=== PATIENT | female | born 1995 | race Caucasian/White ===

== ENCOUNTER → 2017-10-17 11:35 | Outpatient (CLI) | payer OTHER, SELFPAY ==
[2017-10-17 16:51] LABS: Urine N gonorrhoeae NOT DETECTED
[2017-10-17 16:57] LABS: Urine Chlamydia NOT DETECTED
== END ==
PROVIDERS: Family Provider Family Medicine; PCP Family Medicine; Visit Provider Family Medicine
DX: Z30.9 Encounter for contraceptive management, unspecified (principal)
CPT/HCPCS: 87491; 87591

== ENCOUNTER 2018-03-18 05:11 | Emergency (ER) | payer OTHER, SELFPAY ==
[2018-03-18 05:28] VITALS: BP 133/72; PULSE 96; RESP 20; O2SAT 100; BMI 30.9
[2018-03-18 05:32] VITALS: BP 121/84; BP 126/80; BP 133/72; PULSE 100; PULSE 102; PULSE 96
--- NOTE | 2018-03-18 05:46 | ED.FEMALEGU ---
HPI - Female Genitourinary General Chief complaint: Vaginal Bleeding Stated complaint: heavy period/huge clots/passed out when got up Time Seen by Provider: 03/18/18 05:38 Source: patient Mode of arrival: ambulatory Limitations: no limitations History of Present Illness HPI Narrative: The patient is a 22-year-old female who presents with heavy vaginal bleeding. She states she started control in September she has a history of heavy periods. This. Started out fairly light however she is on day 9. It has gotten progressively heavier. She said all day yesterday she was going through a pad an hour. This morning she passed out after using the restroom. Her mom heard her fall. It was very brief she has no head injury from it. She had mild abdominal cramping. No severe pain. She also passing a fist-sized clots. MD Complaint: vaginal bleeding Related Data Previous Rx's Medication Instructions Recorded albuterol sulfate HFA 90 2 puff INHALATION Q4HP PRN #1 inh 10/17/17 mcg/actuation aerosol inhaler norethindrone 1 mg-ethinyl 1 tab PO DAILY #1 packet 10/17/17 estradiol 10 mcg (24)-iron 10 mcg(2) tablet Allergies Allergy/AdvReac Type Severity Reaction Status Date / Time Penicillins Allergy Severe HIVES Unverified 10/17/17 11:07 Review of Systems Review of Systems All systems reviewed & are unremarkable except as noted in HPI and below Constitutional Denies chills, Denies fever(s), Denies lethargy and Reports weakness Eyes Denies change in vision, Denies eye discharge, Denies irritation and Denies loss of vision Cardiovascular Denies chest pain, Reports syncope, Denies irregular heart rhythm, Reports lightheadedness, Denies palpitations, Denies dyspnea, Denies dyspnea on exertion and Denies orthopnea Respiratory Denies cough, Denies dyspnea, Denies dyspnea on exertion and Denies wheezing Gastrointestinal Gastrointestinal: Denies abdominal pain, Denies change in bowel habits, Denies diarrhea, Denies nausea and Denies vomiting Genitourinary Reports as per HPI Musculoskeletal Denies back pain, Denies muscle weakness, Denies numbness and Denies tingling Integumentary/Breasts Denies pruritus, Denies erythema, Denies rash and Denies wounds Neurologic Reports syncope, Denies loss of vision, Denies numbness, Denies tingling and Reports weakness Endocrine Denies palpitations Allergic/Immunologic Denies wheezing [facility] Medical History Class 1 obesity (02/09/16) Asthma (Chronic ~2012) Social History marital status: unmarried,single household members: other pets and animals: Yes education level: college occupational status: student abraham/nondenominational: Yazdanism travel history: other leisure activities: reading seatbelt use: always Smoking Status: Current some day smoker alcohol intake: current substance use type: does not use during the past year weight has: remained stable well-balanced diet: daily or most days daily servings fruits/ve-4 eating out: rarely or never Type(s) of exercise: other frequency: 3-4 times per week duration: 45-60 minutes/day Exam Initial Vital Signs Initial Vital Signs: Vital Signs Pulse Rate 96 H 03/18/18 05:28 Respiratory Rate 20 03/18/18 05:28 Blood Pressure 133/72 03/18/18 05:28 Pulse Oximetry 100 03/18/18 05:28 GENERAL: Well-appearing, well-nourished and in no acute distress. HEENT: Head atraumatic,EOMI, pupils reactive, face symmetric, CARDIOVASCULAR: Regular rate and rhythm without murmurs, rubs or gallops. RESPIRATORY: Breath sounds equal bilaterally, no wheezes rales or rhonchi. ABDOMEN: Soft, nontender. Normoactive bowel sounds all 4 quadrants. No guarding or rebound. PELVIC: External genitalia is normal, mild to moderate mild vaginal bleeding, no large blood clots no vaginal discharge, no odor, cervical os is open, no adnexal tenderness : No CVA tenderness EXTREMITIES: Normal range of motion, no clubbing or edema. Neurovascularly intact NEUROLOGICAL: Alert and oriented x4.Normal gait and speech. SKIN: Warm, dry, no laceration, no petechiae, no rashes or lesions. Course Orders Ordered: Discontinued Medications Sodium Chloride (Normal Saline 0.9%) 1,000 mls @ 1,000 mls/hr IV BOLUS ONE Stop: 03/18/18 06:44 Last Infusion: 03/18/18 07:16 Dose: 0 mls/hr Admin: 03/18/18 06:05 Dose: 1,000 mls/hr Medroxyprogesterone Acetate (Medroxyprogesterone) 10 mg PO NOW ONE Stop: 03/18/18 06:37 Last Admin: 03/18/18 06:46 Dose: 10 mg Vital Signs - 8 hr 03/18/18 05:28 03/18/18 05:32 Pulse Rate 96 H Pulse Rate [Orthostatic Lying] 96 H Pulse Rate [Orthostatic Sitting] 100 H Pulse Rate [Orthostatic Standing] 102 H Respiratory Rate 20 Blood Pressure 133/72 Blood Pressure [Orthostatic Lying] 133/72 Blood Pressure [Orthostatic Sitting] 126/80 Blood Pressure [Orthostatic Standing] 121/84 Pulse Oximetry 100 MDM - Female Genitourinary Lab Data Attestation: I reviewed the patient's lab results. Result diagrams: 03/18/18 06:00 03/18/18 06:00 Lab Results 03/18/18 03/18/18 03/18/18 Range/Units 06:00 06:00 07:51 WBC 8.8 (4.5-11.0) X10^3/uL RBC 3.80 L (4.0-5.2) X10^6/uL Hgb 11.3 L (12.0-16.0) g/dL Hct 32.3 L (36-46) % MCV 84.8 (80-100) fL MCH 29.6 (26-34) PG MCHC 34.9 (30-36) % RDW 13.7 (11.6-14.8) % Plt Count 277 (150-400) X10^3/uL Neut % (Auto) 66.0 (50-75) % Lymph % (Auto) 26.0 (25-40) % [place] % (Auto) 5.4 (3-14) % Eos % (Auto) 2.1 (2-4) % Baso % (Auto) 0.5 (0-2) % Neut # (Auto) 5800 (2975-4983) /uL Sodium 137 (137-145) mmol/L Potassium 3.6 (3.4-5.1) mmol/L Chloride 103 (98-107) mmol/L Carbon Dioxide 22 (22-32) mmol/L BUN 15 (7-17) mg/dL Creatinine 0.60 (0.52-1.04) mg/dL Estimated GFR > 60.0 (>60) mL/min BUN/Creatinine Ratio 25.0 H (6-22) Glucose 134 H (70-100) mg/dL Calcium 8.4 (8.4-10.2) mg/dL Urine RBC 30-100/hpf H (0-5/HPF) Urine WBC 1-5/hpf (0-5/HPF) Ur Squamous Epith Cells 1-5 /hpf Amorphous Sediment 1+ Urine Bacteria Many (>30) H (None) Ur Culture Indicated? Specimen cultured Micro UA Comment Not Reportable Point of Care Testing Test Results Negative Urine Dip Bedside Urine Glucose Negative Bedside Urine Bilirubin - Negative Bedside Urine Ketone - Negative Urine Specific [place] 1.015 Bedside Urine Occult Blood +++ Bedside Urine pH 6.0 Bedside Urine Protein +/- 15 Bedside Urine Urobilinogen - Negative Bedside Urine Nitrite - Negative Bedside Urine Leukocytes + 70 Esterase Imaging Data US pelvic: Radiologist's impression: ROCEDURE: US PELVIC COMPLETE INDICATIONS: vaginal bleeding TECHNIQUE: Real-time scanning was performed of the pelvic organs, with image documentation. Additional endovaginal scanning was necessary due to incomplete visualization of the adnexal and endometrial structures by transabdominal scanning. COMPARISON: None. FINDINGS: Transabdominal scanning: Limited scanning through the kidneys shows no hydronephrosis. No pathologic free abdominal or pelvic fluid. Endovaginal scanning: Uterus: Uterus is normal in size at 8.1 x 4.2 x 5.9 cm. The endometrium measures 9.3 mm in combined thickness. Large intramural/subserosal fibroid is noted in the fundus of uterus measures 3.2 x 3.5 x 2.4 cm in size. No gross endometrial mass or fluid. Physiologic amount of free fluid is seen in posterior cul-de-sac. Ovaries: Right ovary measures 3 x 1.7 x 2.4 cm in size. Left ovary measures 3.5 x 3 x 3.4 cm in size. 3 x 2.5 x 3.1 cm simple cyst is noted in left ovary. No gross sonogram and lesion. Normal blood flow is seen in bilateral ovaries on color Doppler images. IMPRESSION: 1. Large uterine fibroid. No gross endometrial mass or fluid. Physiologic amount of free fluid in the posterior cul-de-sac. 2. Simple cyst in left ovary. No solid upright ovarian lesion. No evidence of ovarian torsion. Dictated by: Ken Mak M.D. on 03/18/2018 at 8:27 MDM Narrative Medical decision making narrative: Discussed warning signs of when to return to ED. Vaginal bleeding is likely contributed to large uterine fibroid. Discharge Plan Departure Patient Disposition: Home Clinical Impression: Menometrorrhagia Discharge Date/Time: 03/18/18 07:55 Interventions: ED Discharge Assessment Last Done: 03/18/18 07:55 Instructions: Uterine Fibroids, DI for Vaginal Bleeding Activity Restrictions/Additional Instructions: *You have been diagnosed with heavy prolonged uterine bleeding, uterine fibroids -have heavy menstrual bleeding, restarting your control, not the sugar pills should help to stop this bleeding. You were also given an extra dose is of pro vera which should also help to stop bleed. Fibroids also cause increase bleeding. *Continue to take medications as directed Resume your control today- not the sugar pills *Follow up with your primary care provider in 2-3 days-Call Dr. Dallas's office today to schedule a follow up appointment *Return to ER if you should have dizziness, lightheadedness, or any new, worsening or concerning symptoms Prescriptions: No Action albuterol sulfate [Ventolin HFA] 90 mcg/actuation HFA aerosol inhaler 2 puff INHALATION Q4HP PRN (Reason: shortness of breath or wheezing) Qty: 1 RF: 2 norethindrone-e.estradiol-iron [Lo Loestrin Fe] 1 mg-10 mcg (24)/10 mcg (2) tablet 1 tab PO DAILY Qty: 1 RF: 11 Referrals: Yuliana Dallas DO [Primary Care Provider] -
[2018-03-18] MEDS: SODIUM CHLORIDE 0.9% 1,000 ML 1000 ML IV (06:05)
[2018-03-18 06:16] LABS: Add Manual Diff / Slide Review NO; Basophils Percent Auto 0.5 % (0-2); Eosinophils Percent Auto 2.1 % (2-4); Hematocrit 32.3 % (36-46); Hemoglobin 11.3 g/dL (12.0-16.0); Mean Corpuscular HGB Conc 34.9 % (30-36); Mean Corpuscular Hemoglobin 29.6 PG (26-34); Mean Corpuscular Volume 84.8 fL (80-100); Monocytes Percent Auto 5.4 % (3-14); Neutrophils Absolute Auto 5800 /uL (3000-5900); Platelet Count 277 X10^3/uL (150-400); Red Cell Distribution Width 13.7 % (11.6-14.8); White Blood Cell Count 8.8 X10^3/uL (4.5-11.0)
[2018-03-18 06:32] LABS: Blood Urea Nitrogen 15 mg/dL (7-17); Calcium 8.4 mg/dL (8.4-10.2); Carbon Dioxide 22 mmol/L (22-32); Chloride 103 mmol/L (98-107); Estimated Glomerular Filt Rate > 60.0 mL/min (>60); Glucose 134 mg/dL (70-100); HEMOLYSIS < 15 (0-50); Potassium 3.6 mmol/L (3.4-5.1); Sodium 137 mmol/L (137-145)
[2018-03-18] MEDS: MEDROXYPROGESTERONE ACETATE 10 MG TABLET PO (06:46)
[2018-03-18 07:54] VITALS: BP 135/88; PULSE 109; RESP 16; O2SAT 100
[2018-03-18 07:55] VITALS: BP 138/88; PULSE 112; RESP 18; O2SAT 97
[2018-03-18 08:08] LABS: Amorphous Sediment Urine 1+; Bacteria Urine Many (>30); RBC Urine 30-100/HPF (0-5/HPF); Squamous Epithelial Cell Urine 1-5 /HPF; WBC Urine 1-5/HPF (0-5/HPF)
[2018-03-18 08:09] LABS: Culture Indicated Urine Specimen Cultured
== END 2018-03-18 07:55 | disposition home or self-care (01) ==
PROVIDERS: Emergency Provider Emergency Medicine; Family Provider Family Medicine; PCP Family Medicine
DX: N92.1 Excessive and frequent menstruation with irregular cycle (principal)
CPT/HCPCS: 36591; 76830; 76856; 80048; 81003; 81015; 81025; 85025; 87086; 96360; 99283; 99284

== ENCOUNTER → 2020-02-02 16:40 | Outpatient (CLI) | payer OTHER, SELFPAY | PROVIDERS: Family Provider Family Medicine; PCP Family Medicine; Visit Provider Physician Assistant | DX: N89.8 Other specified noninflammatory disorders of vagina (principal) | CPT/HCPCS: 87210 ==

== ENCOUNTER → 2020-02-15 11:45 | Outpatient (CLI) | payer OTHER, SELFPAY ==
[2020-02-15 13:25] LABS: Add Manual Diff / Slide Review NO; Basophils Absolute Auto 0 /uL (0-100); Basophils Percent Auto 0.6 % (0-2); Eosinophils Absolute Auto 200 /uL (0-450); Eosinophils Percent Auto 2.9 % (2-4); Hematocrit 43.6 % (36-46); Lymphocytes Absolute Auto 2000 /uL (1100-4500); Lymphocytes Percent Auto 27.8 % (25-40); Mean Corpuscular HGB Conc 34.3 % (30-36); Mean Corpuscular Hemoglobin 30.8 PG (26-34); Mean Corpuscular Volume 89.8 fL (80-100); Monocytes Absolute Auto 400 /uL (0-900); Monocytes Percent Auto 4.9 % (3-14); Neutrophils Absolute Auto 4700 /uL (1500-7000); Neutrophils Percent Auto 63.8 % (50-75); Platelet Count 358 X10^3/uL (150-400); Red Blood Cell Count 4.86 X10^6/uL (4.0-5.2); White Blood Cell Count 7.3 X10^3/uL (4.5-11.0)
[2020-02-15 13:46] LABS: Hemoglobin A1C% w Est Avg Glu 5.3 % (4.0-6.0)
[2020-02-15 13:58] LABS: Alanine Aminotransferase 39 IU/L (<35); Albumin 4.7 g/dL (3.5-5.0); Albumin Globulin Ratio 1.4 (1.0-2.8); Alkaline Phosphatase 64 U/L (38-126); Aspartate Aminotransferase 27 IU/L (14-36); BUN Creatinine Ratio 12.3 (6-22); Bilirubin Total 0.4 mg/dL (0.2-1.3); Blood Urea Nitrogen 8 mg/dL (7-17); Calcium 9.4 mg/dL (8.4-10.2); Carbon Dioxide 26 mmol/L (22-32); Chloride 101 mmol/L (98-107); Estimated Glomerular Filt Rate > 60.0 mL/min (>60); Globulin 3.4 g/dL (1.7-4.1); Glucose 93 mg/dL (70-100); HEMOLYSIS < 15 (0-50); Potassium 4.6 mmol/L (3.4-5.1); Sodium 138 mmol/L (137-145); Total Protein 8.1 g/dL (6.3-8.2)
== END ==
PROVIDERS: Family Provider Family Medicine; PCP Family Medicine; Referring Provider Registered Nurse; Visit Provider Registered Nurse
DX: D64.9 Anemia, unspecified (principal); N92.6 Irregular menstruation, unspecified; E66.9 Obesity, unspecified; R73.09 Other abnormal glucose
CPT/HCPCS: 36415; 80053; 83036; 85025

== ENCOUNTER → 2020-02-16 12:03 | Outpatient (CLI) | payer OTHER, SELFPAY ==
--- NOTE | 2020-02-16 12:04 | DI.US.S_ITS ---
PROCEDURE: US PELVIC COMPLETE INDICATIONS: recent irregular bleeding TECHNIQUE: Real-time scanning was performed of the pelvic organs, with image documentation. Additional endovaginal scanning was necessary due to incomplete visualization of the adnexal and endometrial structures by transabdominal scanning. COMPARISON: [facility], , US PELVIC COMPLETE, 03/18/2018, 6:38. FINDINGS: Transabdominal scanning: Limited scanning through the kidneys shows no hydronephrosis. No pathologic free abdominal or pelvic fluid. Endovaginal scanning: Uterus: Uterus is normal in size at 6.8 x 3.6 x 5.4 cm. The endometrium measures 4 mm in combined thickness. Along the right uterus, there is an intramural fibroid seen that measures 4.1 x 3.5 x 3.2 cm, which previously measured 3.2 x 3.5 x 2.4. Ovaries: The right ovary measures 4.2 x 2.2 x 2.2 cm. The left ovary measures 3.4 x 2.5 x 1.8 cm. The ovaries have a normal sonographic appearance. No adnexal masses are seen. Normal appearing arterial flow is confirmed to each ovary. IMPRESSION: No imaging explanation is found for this patient's presenting symptoms. Right uterine fibroid seen, which has increased in size compared to 2018. Normal-appearing ovaries, without findings of ovarian torsion. Dictated by: Ramon George M.D. on 02/16/2020 at 12:53 Approved by: Ramon George M.D. on 02/16/2020 at 12:55
== END ==
PROVIDERS: Family Provider Family Medicine; PCP Family Medicine; Referring Provider Registered Nurse; Visit Provider Registered Nurse
DX: D25.1 Intramural leiomyoma of uterus (principal); N92.6 Irregular menstruation, unspecified
CPT/HCPCS: 76856

== ENCOUNTER → 2020-03-01 11:47 | Outpatient (CLI) | payer OTHER, SELFPAY | PROVIDERS: Family Provider Family Medicine; PCP Family Medicine; Referring Provider Family Medicine; Visit Provider Family Medicine | DX: N76.1 Subacute and chronic vaginitis (principal) | CPT/HCPCS: 87491; 87591 ==

== ENCOUNTER 2020-10-15 17:02 | Emergency (ER) | payer SELFPAY ==
[2020-10-15] VITALS (7 sets, daily range): BP systolic 137–190; BP diastolic 77–102; PULSE 78–121; RESP 18–24; O2SAT 98–100
--- NOTE | 2020-10-15 17:25 | ED.FEMALEGU ---
HPI - Female Genitourinary General Chief complaint: Vaginal Bleeding Stated complaint: Uterian Fibroids, Extreme Bleeding Time Seen by Provider: 10/15/20 17:07 Source: patient Mode of arrival: Ambulatory History of Present Illness HPI Narrative: 25-year-old woman with history of heavy vaginal bleeding secondary to uterine fibroids presents with heavy vaginal bleeding. Current menstrual cycle started approximately 4 days ago and today she has been having such having bleeding she is having difficulty getting off the toilet. She is beginning to feel a bit dizzy and lightheaded but having no chest pain or palpitations. She notes that she has been on combination oral contraceptives for at least 6 months. In 2018 she had similar episodes of heavy bleeding was on oral contraceptives for about a year, off for a number of months until the bleeding became worse again and restarted with current OCPs. She was noted to be moderately anemic in March of 2018 with a hematocrit 32.3 going up to a hematocrit of 43.6 in mid January of this most recent year. She has been wanting to see a contract clerk automobile regarding the known uterine fibroid but each time she calls appointments are so far out she ends up not scheduling. Most recent pelvic ultrasound was February of 2020 and showed an intramural fibroid that has grown since 2017 and currently measures 4.1 x 3.5 x 3.2 cm which is the presumed underlying etiology for her menometrorrhagia Related Data Previous Rx's Medication Instructions Recorded estradiol-dienogest 3 mg/2 mg-2 1 tab PO DAILY #84 tab 02/24/20 mg/2 mg-3 mg/1 mg tablet clobetasol 0.05 % topical cream 1 applictn TOP BEDTIME #15 gram 03/07/20 albuterol sulfate 90 mcg/actuation See Rx Instructions .ROUTE 03/30/20 aerosol inhaler .COMPLEX #8.5 gram medroxyprogesterone 10 mg PO DAILY PRN #16 tab 10/15/20 Allergies Allergy/AdvReac Type Severity Reaction Status Date / Time Penicillins Allergy Severe HIVES Verified 02/15/20 11:22 Review of Systems Review of Systems Narrative: No nausea, vomiting, diarrhea. She is able to eat and keep fluids down without difficulty. Remainder of complete review of systems is otherwise unremarkable except for that included in the HPI. Patient History Medical History (Updated 10/15/20 @ 18:16 by Yamilet Breaux MD) Asthma (~2012) Uterine leiomyoma Family History Father Age: 57 Essential hypertension Grandfather No problems noted. Grandmother No problems noted. alcohol intake frequency: holidays/special occasions only Substance Use Type: marijuana Exam Narrative Exam Narrative: General: Alert appropriate in no acute distress Respiratory: Able to speak in full sentences, no obvious respiratory distress Skin: No obvious rashes, warm and dry Neurologic: Grossly intact no obvious asymmetries or abnormalities Abdominal exam: Mild tenderness in the pelvic area without rebound or guarding. Of note she is having relatively heavy vaginal bleeding Psych: appropriate insight and affect, cooperative Initial Vital Signs Initial Vital Signs: Vital Signs Pulse Rate 121 H 10/15/20 17:07 Respiratory Rate 24 10/15/20 17:07 Blood Pressure 177/85 H 10/15/20 17:07 Pulse Oximetry 98 10/15/20 17:07 Course Orders Ordered: Discontinued Medications Sodium Chloride (Normal Saline 0.9%) 1,000 mls @ 1,000 mls/hr IV BOLUS ONE Stop: 10/15/20 18:17 Last Infusion: 10/15/20 19:02 Dose: 0 mls/hr Documented by: Admin: 10/15/20 17:53 Dose: 1,000 mls/hr Documented by: NARGIS Ketorolac Tromethamine (Ketorolac 30 Mg/Ml Vial) 15 mg IV NOW ONE Stop: 10/15/20 18:03 Last Admin: 10/15/20 18:16 Dose: 15 mg Documented by: PALOMA Medroxyprogesterone Acetate (Medroxyprogesterone Acetate 10 Mg Tablet) 20 mg PO NOW ONE Stop: 10/15/20 17:24 Last Admin: 10/15/20 18:03 Dose: 20 mg Documented by: PALOMA Medroxyprogesterone Acetate (Medroxyprogesterone Acetate 10 Mg Tablet) 20 mg PO NOW ONE Stop: 10/15/20 18:03 Last Admin: 10/15/20 18:18 Dose: 20 mg Documented by: PALOMA Vital Signs Vital signs: Vital Signs - 8 hr 10/15/20 17:07 Pulse Rate 121 H Respiratory Rate 24 Blood Pressure 177/85 H Pulse Oximetry 98 MDM - Female Genitourinary Lab Data Result diagrams: 10/15/20 17:25 10/15/20 17:25 Labs: Lab Results 10/15/20 10/15/20 10/15/20 Range/Units 17:25 17:25 17:25 WBC 11.7 H (4.5-11.0) X10^3/uL RBC 3.88 L (4.0-5.2) X10^6/uL Hgb 11.5 L (12.0-16.0) g/dL Hct 34.0 L (36-46) % MCV 87.6 (80-100) fL MCH 29.5 (26-34) PG MCHC 33.7 (30-36) % RDW 12.9 (11.6-14.8) % Plt Count 383 (150-400) X10^3/uL Neut % (Auto) 58.6 (50-75) % Lymph % (Auto) 30.5 (25-40) % [place] % (Auto) 7.6 (3-14) % Eos % (Auto) 2.4 (2-4) % Baso % (Auto) 0.9 (0-2) % Neut # (Auto) 6800 (0583-7585) /uL Lymph # (Auto) 3600 (6546-5441) /uL [place] # (Auto) 900 (0-900) /uL Eos # (Auto) 300 (0-450) /uL Baso # (Auto) 100 (0-100) /uL Sodium 138 (137-145) mmol/L Potassium 3.5 (3.4-5.1) mmol/L Chloride 105 (98-107) mmol/L Carbon Dioxide 23 (22-32) mmol/L BUN 8 (7-17) mg/dL Creatinine 0.55 (0.52-1.04) mg/dL Estimated GFR > 60.0 (>60) mL/min BUN/Creatinine Ratio 14.5 (6-22) Glucose 108 H (70-100) mg/dL Calcium 8.9 (8.4-10.2) mg/dL Total Bilirubin 0.2 (0.2-1.3) mg/dL AST 28 (14-36) IU/L ALT 21 (<35) IU/L Alkaline Phosphatase 56 (38-126) U/L Total Protein 7.6 (6.3-8.2) g/dL Albumin 4.4 (3.5-5.0) g/dL Globulin 3.2 (1.7-4.1) g/dL Albumin/Globulin Ratio 1.4 (1.0-2.8) TSH 8.18 H (0.47-4.68) uIU/mL HCG, Quant mIU/mL 10/15/20 Range/Units 17:25 WBC (4.5-11.0) X10^3/uL RBC (4.0-5.2) X10^6/uL Hgb (12.0-16.0) g/dL Hct (36-46) % MCV (80-100) fL MCH (26-34) PG MCHC (30-36) % RDW (11.6-14.8) % Plt Count (150-400) X10^3/uL Neut % (Auto) (50-75) % Lymph % (Auto) (25-40) % [place] % (Auto) (3-14) % Eos % (Auto) (2-4) % Baso % (Auto) (0-2) % Neut # (Auto) (7729-1124) /uL Lymph # (Auto) (4476-8855) /uL [place] # (Auto) (0-900) /uL Eos # (Auto) (0-450) /uL Baso # (Auto) (0-100) /uL Sodium (137-145) mmol/L Potassium (3.4-5.1) mmol/L Chloride (98-107) mmol/L Carbon Dioxide (22-32) mmol/L BUN (7-17) mg/dL Creatinine (0.52-1.04) mg/dL Estimated GFR (>60) mL/min BUN/Creatinine Ratio (6-22) Glucose (70-100) mg/dL Calcium (8.4-10.2) mg/dL Total Bilirubin (0.2-1.3) mg/dL AST (14-36) IU/L ALT (<35) IU/L Alkaline Phosphatase (38-126) U/L Total Protein (6.3-8.2) g/dL Albumin (3.5-5.0) g/dL Globulin (1.7-4.1) g/dL Albumin/Globulin Ratio (1.0-2.8) TSH (0.47-4.68) uIU/mL HCG, Quant < 2.4 mIU/mL MDM Narrative Medical decision making narrative: 25-year-old woman with a history of uterine leiomyoma and recurrent episodes of menometrorrhagia. She is currently on oral contraceptives. Will have her start medroxyprogesterone to help with the current episodes of bleeding and asked to follow-up with OBGYN to discuss additional treatment to more effectively manage this long-term. She currently is but would like to have children in the future. Minor dehydration with orthostatic physiology on presentation. Feeling significantly better after a L of fluid is given. She is placed on a progesterone taper with instructions to contact her primary care physician. She is safe from discharge Discharge Plan Departure Patient Disposition: Home Clinical Impression: Menometrorrhagia, Orthostatic hypotension Anemia Qualifiers: Anemia type: other cause Other causes of anemia: acute posthemorrhagic Qualified Code(s): D62 - Acute posthemorrhagic anemia Instructions: Anemia, DI for Menorrhagia Activity Restrictions/Additional Instructions: Thank you for coming in today You have had quite a bit of bleeding, almost as much as your episode in 2018. I am going to place you on a progesterone taper, the instructions and prescription have been electronically transmitted to [facility]. Please take the 20 mg of progesterone given to to go home with from the emergency room at around 10:00 a.m. nathaly. Because you have lost so much blood, do consider adding an [id number] iron supplement to your diet for the next month or so. Do continue your current control pills Please contact [facility] janitorial manager Department for follow-up and discussion of management of your known fibroid If you find that you are getting worse or more symptomatic, please feel free to return to the emergency department. Prescriptions: New medroxyprogesterone 10 mg tablet 10 mg PO DAILY PRN (Reason: metrorrhagia) Qty: 16 RF: 0 No Action [place] 3 mg/2 mg-2 mg/ 2 mg-3 mg/1 mg tablet 1 tab PO DAILY Qty: 84 RF: 3 clobetasol 0.05 % cream 1 applictn TOP BEDTIME Qty: 15 RF: 0 albuterol sulfate 90 mcg/actuation HFA aerosol inhaler See Rx Instructions .ROUTE .COMPLEX Qty: 8.5 RF: 11 Referrals: Yolanda Hines MD [Physician] - Yuliana Dallas DO [Primary Care Provider] -
--- NOTE | 2020-10-15 17:38 | PC.NURSE ---
Dr. tavarez had patient lie down, heart rate 93, bp 190/102, standing 123, bp 165/83.
[2020-10-15 17:41] LABS: Add Manual Diff / Slide Review NO; Basophils Absolute Auto 100 /uL (0-100); Basophils Percent Auto 0.9 % (0-2); Eosinophils Absolute Auto 300 /uL (0-450); Eosinophils Percent Auto 2.4 % (2-4); Hemoglobin 11.5 g/dL (12.0-16.0); Lymphocytes Absolute Auto 3600 /uL (1100-4500); Lymphocytes Percent Auto 30.5 % (25-40); Mean Corpuscular HGB Conc 33.7 % (30-36); Mean Corpuscular Hemoglobin 29.5 PG (26-34); Mean Corpuscular Volume 87.6 fL (80-100); Monocytes Absolute Auto 900 /uL (0-900); Monocytes Percent Auto 7.6 % (3-14); Neutrophils Absolute Auto 6800 /uL (1500-7000); Neutrophils Percent Auto 58.6 % (50-75); Platelet Count 383 X10^3/uL (150-400); Red Blood Cell Count 3.88 X10^6/uL (4.0-5.2); Red Cell Distribution Width 12.9 % (11.6-14.8); White Blood Cell Count 11.7 X10^3/uL (4.5-11.0)
[2020-10-15] MEDS: SODIUM CHLORIDE 0.9% 1,000 ML 1000 ML IV (17:53)
[2020-10-15 17:55] LABS: Alanine Aminotransferase 21 IU/L (<35); Albumin 4.4 g/dL (3.5-5.0); Albumin Globulin Ratio 1.4 (1.0-2.8); Alkaline Phosphatase 56 U/L (38-126); Aspartate Aminotransferase 28 IU/L (14-36); BUN Creatinine Ratio 14.5 (6-22); Bilirubin Total 0.2 mg/dL (0.2-1.3); Blood Urea Nitrogen 8 mg/dL (7-17); Calcium 8.9 mg/dL (8.4-10.2); Carbon Dioxide 23 mmol/L (22-32); Chloride 105 mmol/L (98-107); Estimated Glomerular Filt Rate > 60.0 mL/min (>60); Globulin 3.2 g/dL (1.7-4.1); Glucose 108 mg/dL (70-100); HEMOLYSIS < 15 (0-50); Potassium 3.5 mmol/L (3.4-5.1); Sodium 138 mmol/L (137-145); Total Protein 7.6 g/dL (6.3-8.2)
[2020-10-15] MEDS: MEDROXYPROGESTERONE ACETATE 10 MG TABLET 20 MG PO ×2 (18:03→18:18)
[2020-10-15 18:12] LABS: HCG Quantitative /Beta subunit < 2.4 mIU/mL
[2020-10-15] MEDS: KETOROLAC 30 MG/ML VIAL 15 MG IV (18:16)
[2020-10-15 18:26] LABS: Thyroid Stimulating Hormone 8.18 uIU/mL (0.47-4.68)
--- NOTE | 2020-10-15 18:47 | PC.NURSE ---
pt states i feel much better after ivf and toradol. denies dizziness will dc home after ivf completes
== END 2020-10-15 19:03 | disposition home or self-care (01) ==
PROVIDERS: Emergency Provider Emergency Medicine; PCP Family Medicine
DX: N92.1 Excessive and frequent menstruation with irregular cycle (principal); I95.1 Orthostatic hypotension; D62 Acute posthemorrhagic anemia
CPT/HCPCS: 36415; 80053; 84443; 84702; 85025; 96361; 96374; 99284; J1885

== ENCOUNTER → 2021-10-25 10:49 | Outpatient (CLI) | payer OTHER, SELFPAY ==
[2021-10-25 12:10] LABS: Add Manual Diff / Slide Review NO; Basophils Absolute Auto 100 /uL (0-100); Basophils Percent Auto 0.8 % (0-2); Eosinophils Absolute Auto 200 /uL (0-450); Eosinophils Percent Auto 2.1 % (2-4); Hematocrit 22.5 % (36-46); Lymphocytes Absolute Auto 2400 /uL (1100-4500); Lymphocytes Percent Auto 28.9 % (25-40); Mean Corpuscular Volume 59.8 fL (80-100); Monocytes Absolute Auto 600 /uL (0-900); Monocytes Percent Auto 7.6 % (3-14); Neutrophils Absolute Auto 5100 /uL (1500-7000); Neutrophils Percent Auto 60.6 % (50-75); Platelet Count 494 X10^3/uL (150-400); Red Blood Cell Count 3.76 X10^6/uL (4.0-5.2); Red Cell Distribution Width 33.9 % (11.6-14.8); White Blood Cell Count 8.4 X10^3/uL (4.5-11.0)
[2021-10-25 12:36] LABS: Hemoglobin 6.8 g/dL (12.0-16.0)
[2021-10-25 13:13] LABS: Anisocytosis 3+; Hypochromasia 1+; Microcytosis 3+; Poikilocytosis 1+; Polychromasia 3+
== END ==
PROVIDERS: PCP Family Medicine; Referring Provider Obstetrics & Gynecology; Visit Provider Obstetrics & Gynecology
DX: D64.9 Anemia, unspecified (principal)
CPT/HCPCS: 36415; 85025

== ENCOUNTER → 2021-10-26 10:36 | Outpatient (CLI) | payer OTHER, SELFPAY | PROVIDERS: PCP Family Medicine; Referring Provider Obstetrics & Gynecology; Visit Provider Obstetrics & Gynecology | DX: D64.9 Anemia, unspecified (principal) | CPT/HCPCS: 36415; 86850; 86900; 86901 ==

== ENCOUNTER → 2021-11-01 10:16 | Outpatient (CLI) | payer OTHER, SELFPAY ==
[2021-11-01 10:47] LABS: Hematocrit 28.2 % (36-46); Hemoglobin 8.5 g/dL (12.0-16.0)
[2021-11-01 12:14] LABS: HEMOLYSIS < 15 (0-50); Iron 31 ug/dL (37-170)
[2021-11-01 12:24] LABS: Percent Iron Saturation 7 % (15-50); Total Iron Binding Capacity 441 ug/dL (265-497); Transferrin 379 mg/dL (206-381)
== END ==
PROVIDERS: PCP Family Medicine; Referring Provider Obstetrics & Gynecology; Visit Provider Obstetrics & Gynecology
DX: D50.9 Iron deficiency anemia, unspecified (principal)
CPT/HCPCS: 36415; 83540; 83550; 85014; 85018; 86850; 86900; 86901

== ENCOUNTER → 2021-11-07 08:21 | Outpatient (CLI) | payer OTHER, SELFPAY ==
--- NOTE | 2021-11-07 08:22 | DI.US.S_ITS ---
PROCEDURE: US PELVIC COMPLETE INDICATIONS: MENOMETRORRHAGIA TECHNIQUE: Real-time scanning was performed of the pelvic organs, with image documentation. Additional endovaginal scanning was necessary due to incomplete visualization of the adnexal and endometrial structures by transabdominal scanning. COMPARISON: [facility], US, US PELVIC COMPLETE, 02/16/2020, 12:23. FINDINGS: Uterus: Uterus is anteverted and normal in size at 10.1 x 7.1 x 7.4 cm. The myometrium is homogeneous. The endometrium measures 2 mm combined thickness. There is a right intramural fibroid which measures 6.0 x 6.5 x 6.6 cm. This previously measured 4.1 x 3.5 x 3.2 cm on the study dated February 16, 2020. Ovaries: The right ovary measures 2.7 x 2.0 x 2.7 cm. The left ovary is not visualized. The right ovary has a normal sonographic appearance. Less than 12 follicles can be seen in the right ovary. No adnexal masses are seen. Other: No pathologic free abdominal or pelvic fluid. IMPRESSION: 1. Large uterine fibroid which has increased in size from 2019. 2. Nonvisualization of the left ovary. Normal sonographic appearance of the right ovary. We strive to produce accurate, complete, and clear reports of imaging services. To assist us in improving patient care, this report was composed using standard report templates and voice recognition software. Therefore, it may contain abnormal punctuation, insertions and/or omissions. Occasional wrong-word or sound-alike substitutions may occur. Though we review the report and make efforts to correct it, we do recommend that the report be read carefully in proper context to recognize any text inaccuracies. Dictated by: Candace Herman M.D. on 11/07/2021 at 11:44 Approved by: Candace Herman M.D. on 11/07/2021 at 12:06
== END ==
PROVIDERS: PCP Family Medicine; Referring Provider Obstetrics & Gynecology; Visit Provider Obstetrics & Gynecology
DX: N92.1 Excessive and frequent menstruation with irregular cycle (principal); D25.1 Intramural leiomyoma of uterus
CPT/HCPCS: 76830; 76856

== ENCOUNTER 2022-03-16 14:15 | Observation (INO) | payer OTHER, MEDICAID, SELFPAY ==
[2022-03-16] VITALS (34 sets, daily range): BP systolic 99–143; BP diastolic 51–87; PULSE 88–114; RESP 16–20; TEMP 36.4–37.1; O2SAT 97–100; BMI 32.8; BMI 36.3
[2022-03-16 14:42] LABS: Add Manual Diff / Slide Review NO; Basophils Absolute Auto 100 /uL (0-100); Basophils Percent Auto 0.6 % (0-2); Eosinophils Absolute Auto 300 /uL (0-450); Eosinophils Percent Auto 2.2 % (2-4); Hematocrit 27.3 % (36-46); Hemoglobin 8.7 g/dL (12.0-16.0); Lymphocytes Absolute Auto 4500 /uL (1100-4500); Lymphocytes Percent Auto 37.7 % (25-40); Mean Corpuscular HGB Conc 31.7 % (30-36); Mean Corpuscular Hemoglobin 22.3 PG (26-34); Mean Corpuscular Volume 70.2 fL (80-100); Monocytes Absolute Auto 1000 /uL (0-900); Monocytes Percent Auto 8.7 % (3-14); Neutrophils Absolute Auto 6000 /uL (1500-7000); Neutrophils Percent Auto 50.8 % (50-75); Platelet Count 516 X10^3/uL (150-400); Red Blood Cell Count 3.89 X10^6/uL (4.0-5.2); Red Cell Distribution Width 19.7 % (11.6-14.8); White Blood Cell Count 11.9 X10^3/uL (4.5-11.0)
--- NOTE | 2022-03-16 14:43 | ED.FEMALEGU ---
HPI - Female Genitourinary General Chief complaint: Vaginal Bleeding Stated complaint: Vaginal bleeding 1pad/hr Time Seen by Provider: 03/16/22 14:42 Source: patient Mode of arrival: EMS Limitations: no limitations History of Present Illness HPI Narrative: This is a 26-year-old female with known large fibroids with planned surgery at [facility]. Patient has had persistent vaginal bleeding for several months sometimes with occasional days of no bleeding. She is going through a pad an hour with large clots sometimes fist-sized. Patient states this is not atypical but does not happen every day. Today she was getting ready to go to gym. She felt lightheaded and had a syncopal episode. Patient denies any dizziness. No chest pain, no shortness of breath, no nausea or vomiting. She denies dysuria, urgency but occasional frequency but feels like that might be from the fibroid sitting on her bladder. Denies black or bloody stools. No new discharge. She has not received a blood transfusion but has had an iron transfusion. She has been on medroxyprogesterone in the past which has been minimally helpful and oral TXA which has been more helpful per patient. She is had this 2 or 3 times. She denies any prior surgeries. No daily medications besides her Felicita. No known drug allergies. No tobacco, alcohol or illicit. Related Data Previous Rx's Medication Instructions Recorded estradiol-dienogest 3 mg/2 mg-2 1 tab PO DAILY #84 tabs 02/24/20 mg/2 mg-3 mg/1 mg tablet (Natazia) clobetasol 0.05 % topical cream 1 applictn topical BEDTIME #15 03/07/20 grams albuterol sulfate 90 mcg/actuation See Rx Instructions .Route 03/30/20 aerosol inhaler .COMPLEX #8.5 grams tranexamic acid 650 mg tablet 1,300 mg PO TID Heavy periods #30 12/06/21 tabs norethindrone 1 mg-ethinyl 1 tab PO .COMPLEX #84 tabs 12/12/21 estradiol 35 mcg tablet (Alyacen) [id number] 300-1-0.5 See Rx Instructions PO .COMPLEX 12/20/21 mg(AM)/elagolix 300 mg(PM) capsules #56 caps Allergies Allergy/AdvReac Type Severity Reaction Status Date / Time Penicillins Allergy Severe HIVES Verified 10/24/20 09:12 Review of Systems Review of Systems ROS Unobtainable: All systems reviewed & are unremarkable except as noted in HPI and below Patient History Medical History Asthma (~2012) Uterine leiomyoma Family History Father Age: 59 Essential hypertension Grandfather No problems noted. Grandmother No problems noted. alcohol intake frequency: holidays/special occasions only Substance Use Type: marijuana Exam Narrative Exam Narrative: GENERAL: Alert and oriented x three, female in mild distress. HEENT: Head normocephalic, atraumatic, EOMI, pupils reactive, no conjunctival pallor, face symmetric, moist mucous membranes NECK: Supple, full range of motion CARDIOVASCULAR: Regular rate and rhythm without murmurs, rubs or gallops. RESPIRATORY: Breath sounds equal bilaterally, no wheezes rales or rhonchi. ABDOMEN: Soft, nontender. Normoactive bowel sounds all 4 quadrants. No guarding or rebound, rigidity, no mass : No CVA tenderness. Female: external vaginal examl normal, positive for dark red vaginal bleeding, patient has large apricot sized clot in the vaginal canal, no discharge, no cervical motion tenderness, normal speculum exam, no adnexal tenderness/mass. Bimanual exam is normal, no enlarged or tender uterus. Non-gravid. EXTREMITIES: Normal range of motion, no clubbing or edema. Neurovascularly intact NEUROLOGICAL: Cranial nerves II through XII grossly intact. Moving all extremities SKIN: Warm, dry, no petechiae, no rashes or lesions. Initial Vital Signs Initial Vital Signs: Vital Signs Pulse Rate 99 H 03/16/22 14:25 Blood Pressure 129/76 03/16/22 14:25 Pulse Oximetry 99 03/16/22 14:25 Course Orders Ordered: ED Orders 03/16/22 14:00 Test Serum,Qual Stat 03/16/22 14:38 Basic Metabolic Panel Stat Complete Blood Count AUTO DIFF Stat PTT [Partial Thromboplastin Time] Stat Prothrombin Time INR Stat 03/16/22 14:55 PRBC [Packed Cells] Stat Type and Screen Stat 03/16/22 15:10 US pelvic complete Stat 03/16/22 16:25 Ictotest Urine Stat Urine Culture Stat Urine Microscopic Stat 03/16/22 17:42 COVID19 -Nasal RAPID/Pre-Proc Stat Sodium Chloride (Normal Saline 0.9%) 1,000 mls @ 125 mls/hr IV CONT JR Last Infusion: 03/16/22 18:28 Dose: 125 mls/hr Documented By: Admin: 03/16/22 15:23 Dose: 125 mls/hr Documented By: RICHARD Discontinued Medications Tranexamic Acid 1,000 mg/ (Sodium Chloride) 100 mls @ 200 mls/hr IV NOW ONE Stop: 03/16/22 18:00 Last Infusion: 03/16/22 18:29 Dose: 200 mls/hr Documented By: Admin: 03/16/22 17:44 Dose: 200 mls/hr Documented By: RICHARD Consultations Consultation #1: Dr. Hines, accepts for observation. Asks to go ahead and tranfuse, suspect she is lower than 8 at this time. She order medroxyprogesterone okay with IV TXA and I will order this. Time: 17:33 Vital Signs Vital signs: Vital Signs - 8 hr 03/16/22 14:54 03/16/22 14:25 03/16/22 14:25 Temperature 97.9 F Pulse Rate 104 H 99 H Respiratory Rate 18 Blood Pressure 122/68 129/76 Pulse Oximetry 98 99 Oxygen Delivery Method Room Air 03/16/22 14:30 03/16/22 14:30 03/16/22 14:40 Temperature Pulse Rate 98 H Respiratory Rate Blood Pressure 130/67 126/69 Pulse Oximetry 98 Oxygen Delivery Method 03/16/22 14:40 03/16/22 14:50 03/16/22 14:50 Temperature Pulse Rate 96 H 97 H Respiratory Rate Blood Pressure 142/79 H Pulse Oximetry 100 100 Oxygen Delivery Method 03/16/22 15:00 03/16/22 15:00 03/16/22 15:09 Temperature Pulse Rate 100 H Respiratory Rate Blood Pressure 143/78 H 134/71 Pulse Oximetry 100 Oxygen Delivery Method 03/16/22 15:09 03/16/22 15:10 03/16/22 15:10 Temperature Pulse Rate 103 H 101 H Respiratory Rate Blood Pressure 130/70 Pulse Oximetry 100 100 Oxygen Delivery Method 03/16/22 15:20 03/16/22 15:20 03/16/22 15:30 Temperature Pulse Rate 99 H Respiratory Rate Blood Pressure 114/64 122/68 Pulse Oximetry 98 Oxygen Delivery Method 03/16/22 15:30 03/16/22 15:40 03/16/22 15:40 Temperature Pulse Rate 102 H 101 H Respiratory Rate Blood Pressure 121/74 Pulse Oximetry 99 100 Oxygen Delivery Method 03/16/22 15:50 03/16/22 15:50 03/16/22 16:05 Temperature Pulse Rate 91 H 114 H Respiratory Rate Blood Pressure 129/66 Pulse Oximetry 100 100 Oxygen Delivery Method 03/16/22 16:06 03/16/22 16:06 03/16/22 16:15 Temperature Pulse Rate 106 H Respiratory Rate Blood Pressure 115/61 99/51 L Pulse Oximetry 99 Oxygen Delivery Method 03/16/22 16:15 03/16/22 16:21 03/16/22 16:21 Temperature Pulse Rate 111 H 103 H Respiratory Rate Blood Pressure 123/62 Pulse Oximetry 100 98 Oxygen Delivery Method 03/16/22 16:30 03/16/22 16:30 03/16/22 16:40 Temperature Pulse Rate 98 H Respiratory Rate Blood Pressure 114/57 L 113/62 Pulse Oximetry 97 Oxygen Delivery Method 03/16/22 16:40 03/16/22 16:50 03/16/22 16:50 Temperature Pulse Rate 88 94 H Respiratory Rate Blood Pressure 118/62 Pulse Oximetry 98 98 Oxygen Delivery Method 03/16/22 17:00 03/16/22 17:00 03/16/22 17:07 Temperature Pulse Rate 91 H Respiratory Rate Blood Pressure 102/58 L 125/67 Pulse Oximetry 99 Oxygen Delivery Method 03/16/22 17:07 03/16/22 17:10 03/16/22 17:10 Temperature Pulse Rate 97 H 94 H Respiratory Rate Blood Pressure 119/68 Pulse Oximetry 99 99 Oxygen Delivery Method 03/16/22 17:20 03/16/22 17:20 03/16/22 17:30 Temperature Pulse Rate 95 H Respiratory Rate Blood Pressure 119/66 122/69 Pulse Oximetry 99 Oxygen Delivery Method 03/16/22 17:30 Temperature Pulse Rate 94 H Respiratory Rate Blood Pressure Pulse Oximetry 98 Oxygen Delivery Method MDM - Female Genitourinary Lab Data Result diagrams: 03/16/22 14:38 03/16/22 14:38 Labs: Lab Results 03/16/22 03/16/22 03/16/22 Range/Units 14:00 14:38 14:38 WBC 11.9 H (4.5-11.0) X10^3/uL RBC 3.89 L (4.0-5.2) X10^6/uL Hgb 8.7 L (12.0-16.0) g/dL Hct 27.3 L (36-46) % MCV 70.2 L (80-100) fL MCH 22.3 L (26-34) PG MCHC 31.7 (30-36) % RDW 19.7 H (11.6-14.8) % Plt Count 516 H (150-400) X10^3/uL Neut % (Auto) 50.8 (50-75) % Lymph % (Auto) 37.7 (25-40) % [place] % (Auto) 8.7 (3-14) % Eos % (Auto) 2.2 (2-4) % Baso % (Auto) 0.6 (0-2) % Neut # (Auto) 6000 (1729-9842) /uL Lymph # (Auto) 4500 (4872-8061) /uL [place] # (Auto) 1000 H (0-900) /uL Eos # (Auto) 300 (0-450) /uL Baso # (Auto) 100 (0-100) /uL PT (10.1-12.7) SECONDS INR (0.9-1.3) APTT (26-36) SECONDS Sodium 138 (137-145) mmol/L Potassium 3.9 (3.4-5.1) mmol/L Chloride 106 (98-107) mmol/L Carbon Dioxide 21 L (22-32) mmol/L BUN 7 (7-17) mg/dL Creatinine 0.67 (0.52-1.04) mg/dL Estimated GFR > 60 (>60) mL/min BUN/Creatinine Ratio 10.4 (6-22) Glucose 120 H (70-100) mg/dL Calcium 8.2 L (8.4-10.2) mg/dL Serum , Qual Negative (Negative) Ur Bilirubin Confirm (Negative) Urine RBC (0-5/HPF) Urine WBC (0-5/HPF) Urine Bacteria (None) Ur Culture Indicated? Blood Type Antibody Screen Crossmatch 03/16/22 03/16/22 03/16/22 Range/Units 14:38 14:55 16:25 WBC (4.5-11.0) X10^3/uL RBC (4.0-5.2) X10^6/uL Hgb (12.0-16.0) g/dL Hct (36-46) % MCV (80-100) fL MCH (26-34) PG MCHC (30-36) % RDW (11.6-14.8) % Plt Count (150-400) X10^3/uL Neut % (Auto) (50-75) % Lymph % (Auto) (25-40) % [place] % (Auto) (3-14) % Eos % (Auto) (2-4) % Baso % (Auto) (0-2) % Neut # (Auto) (4607-1199) /uL Lymph # (Auto) (4368-3584) /uL [place] # (Auto) (0-900) /uL Eos # (Auto) (0-450) /uL Baso # (Auto) (0-100) /uL PT 10.9 (10.1-12.7) SECONDS INR 1.0 (0.9-1.3) APTT 20 L (26-36) SECONDS Sodium (137-145) mmol/L Potassium (3.4-5.1) mmol/L Chloride (98-107) mmol/L Carbon Dioxide (22-32) mmol/L BUN (7-17) mg/dL Creatinine (0.52-1.04) mg/dL Estimated GFR (>60) mL/min BUN/Creatinine Ratio (6-22) Glucose (70-100) mg/dL Calcium (8.4-10.2) mg/dL Serum , Qual (Negative) Ur Bilirubin Confirm Negative (Negative) Urine RBC >100/hpf H (0-5/HPF) Urine WBC 1-5/hpf (0-5/HPF) Urine Bacteria Occasional (0-1) (None) Ur Culture Indicated? Culture not indicate Blood Type A Positive Antibody Screen Negative Crossmatch See Detail Urine Dip Bedside Urine Glucose Negative Bedside Urine Bilirubin + 1 Bedside Urine Ketone +/- 5 Urine Specific [place] 1.020 Bedside Urine Occult Blood +++ Bedside Urine pH 6.0 Bedside Urine Protein +++ 300 Bedside Urine Urobilinogen +/- 1mg Bedside Urine Nitrite + Positive Bedside Urine Leukocytes ++ 125 Esterase MDM Narrative Medical decision making narrative: This is a 26-year-old female comes emergency department complaint of vaginal bleeding through more than 1 pad an hours she is had longstanding vaginal bleeding from large uterine fibroid with plan for surgery at [facility] with Dr. Castellon on April 12. Patient hemoglobin is 8 but she is actively having some bleeding on my pelvic exam. Suspect she may be lower than this and she had near-syncope again when she tried to stand to use the restroom. Patient's vitals had improved from the field but is still slightly tachycardic. Discussed with OBGYN patient's plan for transfusion, medroxyprogesterone, IV TXA, observation overnight if bleeding able to be controlled potentially follow-up for surgery outpatient versus changing course for more recent treatment. Critical Care Time Critical Care Time Critical Care Time: Yes Total Critical Care Time: 35 Attestation: The high probability of a clinically significant, sudden or life threatening deterioration of the [cardiac, pulm] system(s) required my full and direct attention, intervention and personal management. The aggregate critical care time was [] minutes. This time is in addition to time spent performing reported procedures but includes the following: [x] Data Review and interpretation [x] Patient assessment and monitoring of vital signs [x] Documentation [x] Medication orders and management Discharge Plan Departure Patient Disposition: Admitted as Observation Clinical Impression: Abnormal vaginal bleeding, Syncope, Symptomatic anemia, Uterine fibroid Admit Date/Time: 03/16/22 17:32 Admit Provider: Yolanda Hines
[2022-03-16 14:49] LABS: BUN Creatinine Ratio 10.4 (6-22); Blood Urea Nitrogen 7 mg/dL (7-17); Calcium 8.2 mg/dL (8.4-10.2); Carbon Dioxide 21 mmol/L (22-32); Chloride 106 mmol/L (98-107); Estimated Glomerular Filt Rate > 60 mL/min (>60); Glucose 120 mg/dL (70-100); HEMOLYSIS < 15 (0-50); Potassium 3.9 mmol/L (3.4-5.1); Sodium 138 mmol/L (137-145)
[2022-03-16 15:05] LABS: Prothrombin Time 10.9 SECONDS (10.1-12.7)
[2022-03-16 15:07] LABS: PTT Partial Thromboplastin Tim 20 SECONDS (26-36)
--- NOTE | 2022-03-16 15:10 | DI.US.S_ITS ---
PROCEDURE: US PELVIC COMPLETE INDICATIONS: vaginal bleeding TECHNIQUE: Real-time scanning was performed of the pelvic organs, with image documentation. Additional endovaginal scanning was necessary due to incomplete visualization of the adnexal and endometrial structures by transabdominal scanning. COMPARISON: [facility], PELVIC COMPLETE, 02/16/2020, 12:23. [facility], PELVIC COMPLETE, 03/18/2018, 6:38. [facility], PELVIC COMPLETE, 11/07/2021, 8:28. FINDINGS: Uterus: Uterus is anteverted and normal in size at 8.9 x 6.4 x 6.9 cm. The myometrium is heterogeneous, with fibroids seen, with the largest measuring 5.1 x 3.9 x 5.7 cm, which previously measured 6 x 6.5 x 6.6 cm. The endometrial stripe is not seen, as it is obscured by the fibroid. Ovaries: The right ovary measures 3.1 x 1.8 x 2.5 cm. The left ovary measures 2.6 x 1.8 x 1.6 cm. The margins of the right ovary are poorly defined. The left ovary is not well seen. Less than 12 follicles can be seen involving each ovary. No adnexal masses are seen. Normal appearing arterial waveforms are confirmed to each ovary. Other: A moderate amount of free fluid is seen with internal debris. IMPRESSION: A large uterine fibroid is seen, which measures smaller on the current study than on the prior. The endometrial stripe is not seen, as it is obscured by the fibroid. There is a moderate amount of free fluid seen, with internal debris. This may be related to blood. Please correlate with status. We strive to produce accurate, complete, and clear reports of imaging services. To assist us in improving patient care, this report was composed using standard report templates and voice recognition software. Therefore, it may contain abnormal punctuation, insertions and/or omissions. Occasional wrong-word or sound-alike substitutions may occur. Though we review the report and make efforts to correct it, we do recommend that the report be read carefully in proper context to recognize any text inaccuracies. Dictated by: Ramon George M.D. on 03/16/2022 at 16:12 Approved by: Ramon George M.D. on 03/16/2022 at 16:15
[2022-03-16] MEDS: SODIUM CHLORIDE 0.9% 1,000 ML 125 ML IV (15:23)
[2022-03-16 15:43] LABS: Pregnancy Test Serum,Qual Negative (Negative)
[2022-03-16 17:01] LABS: Bacteria Urine Occasional (0-1); Ictotest Urine Negative (Negative); RBC Urine >100/HPF (0-5/HPF); WBC Urine 1-5/HPF (0-5/HPF)
[2022-03-16] MEDS: TRANEXAMIC ACID 1,000 MG in SODIUM CHLORIDE 0.9% 100 ML 200 MG IV (17:44)
[2022-03-16 18:20] LABS: COVID19 -Nasal RAPID Negative (Negative)
--- NOTE | 2022-03-16 18:33 | PM.GYNHP.1 ---
History of Present Illness History of Present Illness Reason for admission: vaginal bleeding Narrative: Gay Ricci is a 26 year old female with abnormal uterine bleeding since 2016 on and off. She has known intramural fibroid since 2018. The fibroid has been growing over the years. She has been treated with oral contraceptives, Provera, Mirena IUD which was expelled and TXA. The patient has episodes of heavy bleeding. Today she had an episode of heavy bleeding with cramping however she had a witnessed syncopal episode and arrived in the ER with continued dizziness despite IV hydration. Decision was made to keep the patient for hydration and blood transfusion. Patient is scheduled for a robotic myomectomy in 3-4 weeks. Patient denies fevers. She denies headaches today. She denies constipation. She does have urinary frequency thought to be from pressure from the enlarging uterine fibroid. [facility] Medical History Asthma (~2012) Uterine leiomyoma Family History Father Age: 59 Essential hypertension Grandfather No problems noted. Grandmother No problems noted. Social History marital status: unmarried,single household members: other pets and animals: Yes education level: college occupational status: student abraham/sikhism: Muslim travel history: other leisure activities: reading seatbelt use: always Smoking Status: Never smoker alcohol intake: current substance use type: does not use during the past year weight has: remained stable well-balanced diet: daily or most days daily servings fruits/ve-4 eating out: rarely or never Type(s) of exercise: other frequency: 3-4 times per week duration: 45-60 minutes/day Meds Home Medications and Allergies Home Medications Medication Instructions Recorded Confirmed Type estradiol-dienogest 3 mg/2 mg-2 1 tab PO DAILY #84 tabs 02/24/20 10/24/20 Rx mg/2 mg-3 mg/1 mg tablet (Natazia) clobetasol 0.05 % topical cream 1 applictn topical BEDTIME #15 03/07/20 10/24/20 Rx grams albuterol sulfate 90 mcg/actuation See Rx Instructions .Route 03/30/20 10/24/20 Rx aerosol inhaler .COMPLEX #8.5 grams tranexamic acid 650 mg tablet 1,300 mg PO TID Heavy periods #30 12/06/21 Rx tabs norethindrone 1 mg-ethinyl 1 tab PO .COMPLEX #84 tabs 12/12/21 Rx estradiol 35 mcg tablet (Alyacen) [id number]-fsgaos-bcjjanyc 300-1-0.5 See Rx Instructions PO .COMPLEX 12/20/21 Rx mg(AM)/elagolix 300 mg(PM) capsules #56 caps Allergies Allergy/AdvReac Type Severity Reaction Status Date / Time Penicillins Allergy Severe HIVES Verified 10/24/20 09:12 Exam Vital Signs (past 8 hours): - 03/16/22 14:54 03/16/22 14:25 03/16/22 14:25 Temperature 97.9 F Pulse Rate 104 H 99 H Respiratory Rate 18 Blood Pressure 122/68 129/76 Pulse Oximetry 98 99 Oxygen Delivery Method Room Air 03/16/22 14:30 03/16/22 14:30 03/16/22 14:40 Temperature Pulse Rate 98 H Respiratory Rate Blood Pressure 130/67 126/69 Pulse Oximetry 98 Oxygen Delivery Method 03/16/22 14:40 03/16/22 14:50 03/16/22 14:50 Temperature Pulse Rate 96 H 97 H Respiratory Rate Blood Pressure 142/79 H Pulse Oximetry 100 100 Oxygen Delivery Method 03/16/22 15:00 03/16/22 15:00 03/16/22 15:09 Temperature Pulse Rate 100 H Respiratory Rate Blood Pressure 143/78 H 134/71 Pulse Oximetry 100 Oxygen Delivery Method 03/16/22 15:09 03/16/22 15:10 03/16/22 15:10 Temperature Pulse Rate 103 H 101 H Respiratory Rate Blood Pressure 130/70 Pulse Oximetry 100 100 Oxygen Delivery Method 03/16/22 15:20 03/16/22 15:20 03/16/22 15:30 Temperature Pulse Rate 99 H Respiratory Rate Blood Pressure 114/64 122/68 Pulse Oximetry 98 Oxygen Delivery Method 03/16/22 15:30 03/16/22 15:40 03/16/22 15:40 Temperature Pulse Rate 102 H 101 H Respiratory Rate Blood Pressure 121/74 Pulse Oximetry 99 100 Oxygen Delivery Method 03/16/22 15:50 03/16/22 15:50 03/16/22 16:05 Temperature Pulse Rate 91 H 114 H Respiratory Rate Blood Pressure 129/66 Pulse Oximetry 100 100 Oxygen Delivery Method 03/16/22 16:06 03/16/22 16:06 03/16/22 16:15 Temperature Pulse Rate 106 H Respiratory Rate Blood Pressure 115/61 99/51 L Pulse Oximetry 99 Oxygen Delivery Method 03/16/22 16:15 03/16/22 16:21 03/16/22 16:21 Temperature Pulse Rate 111 H 103 H Respiratory Rate Blood Pressure 123/62 Pulse Oximetry 100 98 Oxygen Delivery Method 03/16/22 16:30 03/16/22 16:30 03/16/22 16:40 Temperature Pulse Rate 98 H Respiratory Rate Blood Pressure 114/57 L 113/62 Pulse Oximetry 97 Oxygen Delivery Method 03/16/22 16:40 03/16/22 16:50 03/16/22 16:50 Temperature Pulse Rate 88 94 H Respiratory Rate Blood Pressure 118/62 Pulse Oximetry 98 98 Oxygen Delivery Method 03/16/22 17:00 03/16/22 17:00 03/16/22 17:07 Temperature Pulse Rate 91 H Respiratory Rate Blood Pressure 102/58 L 125/67 Pulse Oximetry 99 Oxygen Delivery Method 03/16/22 17:07 03/16/22 17:10 03/16/22 17:10 Temperature Pulse Rate 97 H 94 H Respiratory Rate Blood Pressure 119/68 Pulse Oximetry 99 99 Oxygen Delivery Method 03/16/22 17:20 03/16/22 17:20 03/16/22 17:30 Temperature Pulse Rate 95 H Respiratory Rate Blood Pressure 119/66 122/69 Pulse Oximetry 99 Oxygen Delivery Method 03/16/22 17:30 03/16/22 17:40 03/16/22 17:40 Temperature Pulse Rate 94 H 98 H Respiratory Rate Blood Pressure 125/60 Pulse Oximetry 98 98 Oxygen Delivery Method 03/16/22 18:00 Temperature Pulse Rate 91 H Respiratory Rate Blood Pressure Pulse Oximetry 99 Oxygen Delivery Method Oxygen Delivery Method Room Air Narrative Exam Narrative: HEENT exam within normal limits. Lungs are clear to auscultation and percussion. Heart is regular rate and rhythm no S3-S4 murmurs. Abdomen is soft, nontender. Pelvic exam not repeated. Extremities without edema. Objective Labs Result Diagrams: 03/16/22 14:38 03/16/22 14:38 Labs: Laboratory Results - last 24 hr 03/16/22 03/16/22 03/16/22 14:00 14:38 14:38 WBC 11.9 H RBC 3.89 L Hgb 8.7 L Hct 27.3 L MCV 70.2 L MCH 22.3 L MCHC 31.7 RDW 19.7 H Plt Count 516 H Neut % (Auto) 50.8 Lymph % (Auto) 37.7 [place] % (Auto) 8.7 Eos % (Auto) 2.2 Baso % (Auto) 0.6 Neut # (Auto) 6000 Lymph # (Auto) 4500 [place] # (Auto) 1000 H Eos # (Auto) 300 Baso # (Auto) 100 PT INR APTT Sodium 138 Potassium 3.9 Chloride 106 Carbon Dioxide 21 L BUN 7 Creatinine 0.67 Estimated GFR > 60 BUN/Creatinine Ratio 10.4 Glucose 120 H Calcium 8.2 L Serum , Qual Negative Ur Bilirubin Confirm Urine RBC Urine WBC Urine Bacteria Ur Culture Indicated? SARS-CoV-2 (PCR) Blood Type Antibody Screen Crossmatch 03/16/22 03/16/22 03/16/22 14:38 14:55 16:25 WBC RBC Hgb Hct MCV MCH MCHC RDW Plt Count Neut % (Auto) Lymph % (Auto) [place] % (Auto) Eos % (Auto) Baso % (Auto) Neut # (Auto) Lymph # (Auto) [place] # (Auto) Eos # (Auto) Baso # (Auto) PT 10.9 INR 1.0 APTT 20 L Sodium Potassium Chloride Carbon Dioxide BUN Creatinine Estimated GFR BUN/Creatinine Ratio Glucose Calcium Serum , Qual Ur Bilirubin Confirm Negative Urine RBC >100/hpf H Urine WBC 1-5/hpf Urine Bacteria Occasional (0-1) Ur Culture Indicated? Culture not indicate SARS-CoV-2 (PCR) Blood Type A Positive Antibody Screen Negative Crossmatch See Detail 03/16/22 17:42 WBC RBC Hgb Hct MCV MCH MCHC RDW Plt Count Neut % (Auto) Lymph % (Auto) [place] % (Auto) Eos % (Auto) Baso % (Auto) Neut # (Auto) Lymph # (Auto) [place] # (Auto) Eos # (Auto) Baso # (Auto) PT INR APTT Sodium Potassium Chloride Carbon Dioxide BUN Creatinine Estimated GFR BUN/Creatinine Ratio Glucose Calcium Serum , Qual Ur Bilirubin Confirm Urine RBC Urine WBC Urine Bacteria Ur Culture Indicated? SARS-CoV-2 (PCR) Negative Blood Type Antibody Screen Crossmatch Assessment & Plan Assessment and plan (1) Menometrorrhagia: Status: Acute (2) Uterine fibroid: Qualifiers: Uterine leiomyoma location: intramural Qualified Code(s): D25.1 - Intramural leiomyoma of uterus Status: Acute (3) Acute on chronic blood loss anemia: Status: Acute Assessment & Plan narrative: IV fluids, blood transfusion, home when stable Time Spent With Patient Time with patient: less than 30 minutes Critical Care time: I spent a total of [] minutes of critical care time on this patient's care today; this time is exclusive of procedural time.
[2022-03-16] MEDS: MEDROXYPROGESTERONE ACETATE 10 MG TABLET PO (22:08)
[2022-03-17 00:53] VITALS: BP 110/52; PULSE 81; RESP 18; TEMP 36.7
[2022-03-17] MEDS: LACTATED RINGERS 1,000 ML 100 ML IV (01:01)
[2022-03-17 06:00] VITALS: BP 120/63; PULSE 97; RESP 18; TEMP 36.2; O2SAT 98
[2022-03-17 06:57] LABS: Add Manual Diff / Slide Review NO; Basophils Absolute Auto 100 /uL (0-100); Basophils Percent Auto 0.8 % (0-2); Eosinophils Absolute Auto 300 /uL (0-450); Eosinophils Percent Auto 2.7 % (2-4); Hematocrit 27.5 % (36-46); Lymphocytes Absolute Auto 3200 /uL (1100-4500); Lymphocytes Percent Auto 30.8 % (25-40); Mean Corpuscular HGB Conc 32.8 % (30-36); Mean Corpuscular Hemoglobin 23.6 PG (26-34); Monocytes Absolute Auto 700 /uL (0-900); Monocytes Percent Auto 7.2 % (3-14); Neutrophils Absolute Auto 6000 /uL (1500-7000); Neutrophils Percent Auto 58.5 % (50-75); Platelet Count 321 X10^3/uL (150-400); Red Blood Cell Count 3.82 X10^6/uL (4.0-5.2); Red Cell Distribution Width 20.4 % (11.6-14.8); White Blood Cell Count 10.3 X10^3/uL (4.5-11.0)
[2022-03-17 07:00] VITALS: O2SAT 100
[2022-03-17 07:12] LABS: Anisocytosis 1+
[2022-03-17 07:50] VITALS: BP 108/59; PULSE 80; RESP 16; TEMP 36.7; O2SAT 100
[2022-03-17] MEDS: MEDROXYPROGESTERONE ACETATE 10 MG TABLET PO (08:15)
--- NOTE | 2022-03-17 10:40 | PM.DS.1 ---
History of Present Illness History of Present Illness Date Patient Seen: 03/17/22 Time Patient Seen: 10:40 Date of Onset of Symptoms: 03/16/22 Chief complaint: Vaginal bleeding 1pad/hr Discharge Providers Provider Date of admission: 03/16/22 17:32 Discharge Date: 03/17/22 Primary care physician: Yuliana Dallas DO Discharge provider: Yolanda Hines MD Summary Hospital Course Discharge Diagnosis: Acute on chronic blood-loss anemia resulting in syncopal episodes and dizziness Hospital Course: Patient was brought to the emergency room after having a syncopal episode at home. Despite IV hydration in the emergency room the patient was still unable to ambulate safely. She did have significant vaginal bleeding on initial evaluation. She was admitted for IV hydration and she received 2 units of blood. Patient also started on Provera therapy and given 1 dose of IV tranexamic acid. This morning the patient is ambulatory and feeling better. Patient also states her bleeding has markedly decreased. Status at Discharge Cognitive/behavioral status at discharge: oriented Functional status at discharge: independent ambulation Overall status at discharge: patient is progressing back to baseline Time Spent with Patient Time spent: Less than 30 minutes Exam Vital Signs (past 8 hours): - 03/17/22 06:00 03/17/22 07:50 03/17/22 07:00 Temperature 97.2 F L 98.1 F Pulse Rate 97 H 80 Respiratory Rate 18 16 Blood Pressure 120/63 108/59 L Pulse Oximetry 98 100 100 Oxygen Delivery Method Room Air Oxygen Flow Rate 0 0 Oxygen Delivery Method Room Air Oxygen Flow Rate 0 Narrative Exam Narrative: Abdomen is soft, nontender. Extremities without edema and nontender. Objective Labs Result Diagrams: 03/17/22 06:45 03/16/22 14:38 Labs: Laboratory Results - last 24 hr 03/16/22 03/16/22 03/16/22 14:00 14:38 14:38 WBC 11.9 H RBC 3.89 L Hgb 8.7 L Hct 27.3 L MCV 70.2 L MCH 22.3 L MCHC 31.7 RDW 19.7 H Plt Count 516 H Neut % (Auto) 50.8 Lymph % (Auto) 37.7 [place] % (Auto) 8.7 Eos % (Auto) 2.2 Baso % (Auto) 0.6 Neut # (Auto) 6000 Lymph # (Auto) 4500 [place] # (Auto) 1000 H Eos # (Auto) 300 Baso # (Auto) 100 Clumped Platelets RBC Morphology Anisocytosis PT INR APTT Sodium 138 Potassium 3.9 Chloride 106 Carbon Dioxide 21 L BUN 7 Creatinine 0.67 Estimated GFR > 60 BUN/Creatinine Ratio 10.4 Glucose 120 H Calcium 8.2 L Serum , Qual Negative Ur Bilirubin Confirm Urine RBC Urine WBC Urine Bacteria Ur Culture Indicated? SARS-CoV-2 (PCR) Blood Type Antibody Screen Crossmatch 03/16/22 03/16/22 03/16/22 14:38 14:55 16:25 WBC RBC Hgb Hct MCV MCH MCHC RDW Plt Count Neut % (Auto) Lymph % (Auto) [place]atte % (Auto) Eos % (Auto) Baso % (Auto) Neut # (Auto) Lymph # (Auto) [place] # (Auto) Eos # (Auto) Baso # (Auto) Clumped Platelets RBC Morphology Anisocytosis PT 10.9 INR 1.0 APTT 20 L Sodium Potassium Chloride Carbon Dioxide BUN Creatinine Estimated GFR BUN/Creatinine Ratio Glucose Calcium Serum , Qual Ur Bilirubin Confirm Negative Urine RBC >100/hpf H Urine WBC 1-5/hpf Urine Bacteria Occasional (0-1) Ur Culture Indicated? Culture not indicate SARS-CoV-2 (PCR) Blood Type A Positive Antibody Screen Negative Crossmatch See Detail 03/16/22 03/17/22 17:42 06:45 WBC 10.3 RBC 3.82 L Hgb 9.0 L Hct 27.5 L MCV 72.0 L MCH 23.6 L MCHC 32.8 RDW 20.4 H Plt Count 321 Neut % (Auto) 58.5 Lymph % (Auto) 30.8 [place] % (Auto) 7.2 Eos % (Auto) 2.7 Baso % (Auto) 0.8 Neut # (Auto) 6000 Lymph # (Auto) 3200 [place] # (Auto) 700 Eos # (Auto) 300 Baso # (Auto) 100 Clumped Platelets RBC Morphology See below Anisocytosis 1+ H PT INR APTT Sodium Potassium Chloride Carbon Dioxide BUN Creatinine Estimated GFR BUN/Creatinine Ratio Glucose Calcium Serum , Qual Ur Bilirubin Confirm Urine RBC Urine WBC Urine Bacteria Ur Culture Indicated? SARS-CoV-2 (PCR) Negative Blood Type Antibody Screen Crossmatch [facility] Medical History Asthma (~2012) Uterine leiomyoma Family History Father Age: 59 Essential hypertension Grandfather No problems noted. Grandmother No problems noted. Social History marital status: unmarried,single household members: family pets and animals: Yes education level: college occupational status: student abraham/buddhism: [employer]ab[employer]ist travel history: other leisure activities: reading seatbelt use: always Smoking Status: Never smoker alcohol intake: current substance use type: does not use during the past year weight has: remained stable well-balanced diet: daily or most days daily servings fruits/ve-4 eating out: rarely or never Type(s) of exercise: other frequency: 3-4 times per week duration: 45-60 minutes/day Discharge Assessment & Plan Assessment and Plan Assessment: Patient with known uterine fibroid who is scheduled to have a robotic myomectomy in 3-4 weeks who was admitted for symptomatic anemia and given IV fluids, are red blood cell transfusion, and restarted on Provera therapy. Plan of Treatment: Patient was discharged home she will continue Provera at home and she is requesting a letter sent to her physician to see if there is any way her surgery can be scheduled sooner. Discharge Plan Discharge Plan Patient Disposition: Home Discharge orders & Medications Prescriptions: New medroxyprogesterone 10 mg Tablet 10 mg PO QID Qty: 30 0RF Continued albuterol sulfate 90 mcg/actuation HFA aerosol inhaler See Rx Instructions .ROUTE .COMPLEX Qty: 8.5 11RF Dose Instruction: INHALE 2 PUFFS BY MOUTH EVERY 4 TO 6 HOURS NEEDED FOR SHORTNESS OF BREATH OR WHEEZING Rx Instructions: INHALE 2 PUFFS BY MOUTH EVERY 4 TO 6 HOURS NEEDED FOR SHORTNESS OF BREATH OR WHEEZING tranexamic acid 650 mg tablet 1,300 mg PO TID Qty: 30 12RF Rx Instructions: Start medication with the start of each episode of heavy bleeding drospirenone-ethinyl estradiol [DEMARIO (28)] 3-0.02 mg Tablet 1 tab PO DAILY Rx Instructions: take one tablet by mouth daily, skipping placebo pills. Follow up/Referrals: Yuliana Dallas DO [Primary Care Provider] - Reece Maldonado MD [Physician] - (Patient will be contacted by office for follow-up) Diet/Activity/Treatments Diet: Regular Activity: No restrictions Skin/Wound/Dressing Care Report to your healthcare provider any signs of infection, such as:: chills, fever Visit Report/Discharge Packet Instructions: DI for Syncope in Adults (Fainting), Anemia, Orthostatic Hypotension Discharge Data Primary Care Provider: Yuliana Dallas
--- NOTE | 2022-03-17 11:03 | CM.DANOTE ---
DCP/Assessment: Reviewed [facility], patient is a 26yr old female admitted under inpatient staus with anemia. PCP is Dr. Dallas. primary payor is 1[facility]. Met with patient and parents both at bedside. Patient hopes to d/c home today. Patient has history of chronic fibroids in which she is scheduled to have removed on April 11 at [facility] Patient does anot anticipate any d/c planning needs and hopes to leave today. P: Home with supportive family with close outpatient f/u with [facility] Discharge Planning/Care Management CM Discharge Assessment Start: 03/17/22 10:58 Freq: Status: Active Protocol: Document 03/17/22 10:59 TIFFANIE (Rec: 03/17/22 11:02 TIFFANIE [id number]) Discharge Planning Assessment Assigned Baker Pie STARLA Rodríguez Contact Information Renuka Gardiner(mother) ph# Advance Directives? No History Provided By Patient,Family Member,Medical Record Prior Living Arrangements House Household Members family Type of transporation used prior to Drives own vehicle admit Comment NO DME at this time. Barriers to Discharge No Discharge Plan Home Whiteboard Updated in Patient Room with Yes name and ext. # of Baker Pie Review Status In Process Next Review Type Continued Stay Review
--- NOTE | 2022-03-17 11:27 | PC.NURSE ---
dayshift Pt left with all personal belongings. Pt received all paperwork and all questions answered, pt will f/u with providers for continued care. Pt left floor via wheelchair accompanied by parents. Left via private car. Pt denied pain or nausea and all VS WNL.
== END 2022-03-17 11:30 | disposition home or self-care (01) | DRG 663 ==
LOC: ED 17:33 → AC 03-17 08:22
PROVIDERS: Admitting Provider Specialist; Emergency Provider Emergency Medicine; PCP Family Medicine; Referring Provider Emergency Medicine; Visit Provider Specialist
DX: D62 Acute posthemorrhagic anemia (principal); N92.1 Excessive and frequent menstruation with irregular cycle; D25.1 Intramural leiomyoma of uterus; R55 Syncope and collapse; J45.909 Unspecified asthma, uncomplicated; Z20.822 Contact with and (suspected) exposure to COVID-19
CPT/HCPCS: 36415; 36430; 36592; 76830; 76856; 80048; 81003; 81015; 84703; 85025; 85610; 85730; 86850; 86900; 86901; 87086; 87635; 93976; 96365; 99217; 99219; 99222; 99238; 99284; 99291; C9803; G0378; P9016

== ENCOUNTER → 2024-12-10 07:37 | Outpatient (CLI) | payer OTHER, SELFPAY ==
[2022-03-16 18:15] VITALS: BMI 36.3
[2024-12-10 10:31] LABS: Influenza A - CEPHEID Flu A NEGATIVE (NEGATIVE); Influenza B - CEPHEID Flu B NEGATIVE (NEGATIVE)
[2024-12-10 10:32] LABS: COVID-19 CEPHEID 4-PLEX PCR Negative (Negative)
== END ==
PROVIDERS: Visit Provider Nurse Practitioner Family
DX: J02.9 Acute pharyngitis, unspecified (principal); R05.1 Acute cough
CPT/HCPCS: 87070; 87637